=== PATIENT | female | born 1970 | race American Indian/Alaskan Native ===

== ENCOUNTER 2016-09-13 05:52 | Day surgery (SDC) | payer OTHER ==
[2016-09-13] MEDS ORDERED: LACTATED RINGERS 1,000 ML IV SCH (06:00)
[2016-09-13] MEDS ORDERED: PEPCID PO NR (06:00)
[2016-09-13] MEDS ORDERED: VERSED IV NR (06:00)
--- NOTE | 2016-09-13 06:40 | Short Stay Summary ---
Short Stay Documentation Date of service: 09/13/16 Narrative H&P: 46y/o with findings of vaginal cyst wall. The patient experiences discomfort during intercourse. She denies any drainage from the lesion. - History Principal diagnosis: gartners cyst Past Medical History: hyperlipidemia, other (asthma) Past Surgical History: No surgical history Social history: - Allergies and Medications Current Medications: Allergies Penicillins Allergy (Verified 09/07/16 13:15) Rash Home Medications Medication Instructions Recorded Confirmed Last Taken Type ALBUTEROL Inhaler [Proair] 2 puff IH QID PRN 09/07/16 09/07/16 Unknown History Mv,Ca,Min/Iron Fum/FA/Lyco/Lut 1 each PO QDAY 09/07/16 09/07/16 Unknown History [Complete Multi Tablet] Active Medications Famotidine (Pepcid) 20 mg PO PREOP NR Stop: 09/13/16 23:59 Lactated Ringer's (Lactated Ringers) 1,000 mls @ 75 mls/hr IV DIRECT RACHID Stop: 09/13/16 23:59 Midazolam HCl (Versed) 2 mg IV PREOP NR Stop: 09/13/16 23:59 - Physical exam General appearance: no acute distress Integumentary: no rash HEENT: Atraumatic Lungs: Clear to auscultation Breasts: deferred Heart: Regular rate Gastrointestinal: normal Female Genitourinary: deferred Rectal Exam: deferred - Brief post op/procedure progress note Date of procedure: 09/13/16 Pre-op diagnosis: Vaginal wall cyst Post-op diagnosis: same Procedure: excision of vaginal wall cyst Anesthesia: GETA Surgeon: JUSTICE LIVE Estimated blood loss: minimal Pathology: list (vaginal cyst wall) Specimen disposition: to lab Condition: stable - Hospital course Hospital course: The patient was admitted the day of surgery and underwent excision of vaginal wall cyst. Please see operative note for details of surgery. A postoperative course was uneventful. - Disposition Condition at discharge: Good Disposition: [id number] TO HOME OR SELFCARE Short Stay Discharge Plan Activity: other (pelvic rest for 4 weeks) Diet: regular Additional Instructions: Patient to schedule follow-up in [address] Cardozo Remain on complete vaginal rest Do not begin use of vaginal cream until postoperative visit Prescriptions: Estradiol Vaginal Cream (Nf) [Estrace Vaginal Cream (Nf)] 1 gm VG QWEEK #1 cream.appl Ibuprofen [Motrin] 800 mg PO Q8HR PRN #60 tablet PRN Reason: Pain oxyCODONE /ACETAMINOPHEN [Percocet 5/325] 1 tab PO Q6HR PRN #30 tablet PRN Reason: Pain
[2016-09-13] MEDS ORDERED: GARAMYCIN IV SCH (06:45)
--- NOTE | 2016-09-13 06:52 | Anesthesia Day of Surgery ---
Anesthesia Day of Surgery - Day of Surgery Patient Examined: Yes Patient H&P Reviewed: Yes Patient is NPO: Yes
--- NOTE | 2016-09-13 06:52 | Anesthesia Consultation ---
Anesthesia Consult and Med Hx Date of service: 09/13/16 - Airway Anesthetic Teeth Evaluation: Good ROM Head & Neck: Adequate Mental/Hyoid Distance: Adequate Mallampati Class: Class II Intubation Access Assessment: Probably Good - Pulmonary Exam CTA: Yes - Cardiac Exam Cardiac Exam: RRR - Pre-Operative Health Status ASA Pre-Surgery Classification: ASA2 Proposed Anesthetic Plan: General - Pulmonary Hx Smoking: Yes Hx Asthma: Yes (SINCE CHILDHOOD) - Other Systems Hx Cancer: No
[2016-09-13] MEDS ORDERED: NACL BACTERIOSTATIC INFILTRATI ONE (06:55)
[2016-09-13] MEDS ORDERED: GARAMYCIN/NS 80 MG/100 ML 100 ML IV ONE (07:00)
[2016-09-13] MEDS ORDERED: CLEOCIN 600 MG/50 mL 600 MG/50 ML BAG IV NR (07:00)
[2016-09-13] MEDS ORDERED: XYLOCAINE MPF 2% ONE (07:18)
[2016-09-13] MEDS ORDERED: DIPRIVAN 10 MG/ML IV ONE (07:18)
[2016-09-13] MEDS ORDERED: DILAUDID ONE (07:18)
[2016-09-13] MEDS ORDERED: XYLOCAINE 1%/ EPI 1:100,000 INFILTRATI ONE ×2 (07:50→08:29)
[2016-09-13] MEDS ORDERED: DECADRON ONE (08:15)
[2016-09-13] MEDS ORDERED: ZOFRAN ONE (08:15)
[2016-09-13] MEDS ORDERED: NACL 0.9% IR ONE (08:30)
--- NOTE | 2016-09-13 08:35 | Operative Report ---
Operative Report Operative Report: Date of surgery: 09/13/2016 Preoperative diagnosis: Vaginal wall cyst Postoperative diagnosis: Same as above Procedure: Excision of vaginal wall cyst Surgeon: Shantel Rico M.D. Anesthesia: General endotracheal anesthesia Estimated blood loss: 50 mL Findings: Fluctuant cyst inferior to the urethra, approximately 1-1/2 cm Indication: 46-year-old 012 with a history of a vaginal wall cyst. The patient complained of discomfort during intercourse. Procedure: The patient was taken to the operating room and given general endotracheal anesthesia without complication. She was prepped and draped in normal sterile fashion. The vaginal mucosa was injected with lidocaine and epinephrine. An incision was made over the vaginal wall cyst with the 15 blade scalpel. The Metzenbaum scissors were used to excise the cyst wall from the vaginal mucosa. Incidental cystotomy of the cyst was performed with evidence of a yellow fluid. The cyst wall was then excised with the scissors. It was evidence of bleeding coming from the vaginal mucosa. Bovie cautery was used to help with hemostasis. Surgicel was also placed on the mucosa. The vaginal wall mucosa was then reapproximated with 3-0 Vicryl in a running fashion. Hemostasis was assured. The patient was then successfully extubated and taken to the recovery room in stable condition. All sponge laps and needle counts correct 2. Specimen sent to pathology was vaginal wall cyst likely consistent with Ferdinand cyst.
[2016-09-13] MEDS ORDERED: NEO SYNEPHRINE/NS Syringe(OR USE) IV ONE (09:30)
[2016-09-13] MEDS ORDERED: TYLENOL #3 PO PRN (09:31)
--- NOTE | 2016-09-13 09:31 | Post Anesthesia Evaluation ---
- Post Anesthesia Evaluation Patient Participated: Yes Airway Patent: Yes Stable Respiratory Function: Yes Nausea/Vomiting: No Temp > 96.8F: Yes Pain Manageable: Yes Adequeate Hydration: Yes Anesthesia Complications: No Block Receding Appropriately: Not Applicable Patient on Ventilator: No
[2016-09-13] MEDS ORDERED: ZOFRAN IV ONE (09:32)
[2016-09-13] MEDS ORDERED: TRANSDERM-SCOP TD ONE (10:00)
[2016-09-13 12:05] VITALS: BP 102/64
== END 2016-09-13 10:40 | disposition home or self-care (01) ==
LOC: OR 05:52
PROVIDERS: ATTEND Obstetrics & Gynecology
DX: N89.8 Other specified noninflammatory disorders of vagina (principal); E78.5 Hyperlipidemia, unspecified; J45.909 Unspecified asthma, uncomplicated; Z88.0 Allergy status to penicillin; Z79.899 Other long term (current) drug therapy; Z87.891 Personal history of nicotine dependence
CPT/HCPCS: 57135; 81025; 88304; J1100; J1170; J1580; J2250; J2370; J2405; J2704; J7120